=== PATIENT | male | born 1970 | race Caucasian/White ===

== ENCOUNTER 2019-05-27 18:27 | Emergency (ER) | payer OTHER ==
[2019-05-27] MEDS ORDERED: Nitroglycerin 0.4 MG Tab.SL SL PRN (18:34)
[2019-05-27] MEDS ORDERED: Aspirin 81 MG Tab.Chew PO ONE (18:34)
--- NOTE | 2019-05-28 08:49 | CR ---
DATE OF SERVICE: 05/27/19 CLINICAL DATA: chest pain AP CHEST: No priors. The heart size is normal. The lungs are clear. No pneumothorax. No pleural effusions. No evidence of acute intrathoracic disease. [id number] MTDD
--- NOTE | 2019-05-29 11:01 | ER ---
REASON FOR EMERGENCY ROOM VISIT: Chest pain. HISTORY: This 48-year-old man was up here ice fishing from [place], [place]. He comes in with pain in his left upper chest area. He gives a history of having chest pain in this area that has been fairly constant over the past 2 days. It is unrelated to any strenuous activity or trauma. He states that the area in his left upper chest wall is tender to touch and is steady in nature. It is not associated with any radiation up his neck or down his left arm. He has no associated back pain. He did not have any nausea or diaphoresis. The pain throughout the day remained steady but worsened after they were busy moving around the ice house and exerting himself. He took 3 ibuprofen tablets before coming in. He states that the pain increased with laughing and coughing and deep breathing. He is a nonsmoker with no past history of hypertension or diabetes. He may have had a borderline elevation in cholesterol. He rates his chest pain at 10/10. He appears somewhat anxious. PAST MEDICAL HISTORY: No hospitalizations. Clavicle fracture as a child. MEDICATIONS: Trazodone p.r.n. for sleep. ALLERGIES: NONE TO MEDICATIONS. REVIEW OF SYSTEMS: Pertinent positives and negatives as listed in the HPI. FAMILY HISTORY: His father and sister both have some sort of a blood disorder, but he is not certain as to the exact nature of this. He has 2 children who are alive and well. He has no other siblings other than his sister. PHYSICAL EXAMINATION: GENERAL: He appears somewhat anxious. His initial blood pressure was 144/96, pulse rate of 108, respirations 20, O2 sats 97% on room air. HEENT: Head is normocephalic. Pupils are equal, round, reactive to light. NECK: Supple. No JVD is noted. No bruits. CHEST: He has definite tenderness that is reproducible in the left upper parasternal area at approximately the level of the second or third rib. This is reproducible quite definitely, and he replicates symptoms he had when he came in. CHEST: Clear to auscultation otherwise with good air exchange bilaterally. No wheezes, rhonchi, or rales. CARDIAC: Regular rate without murmur or rub. ABDOMEN: Soft, nontender. No hepatosplenomegaly. SKIN: No rashes. FURTHER EMERGENCY ROOM COURSE: Immediately upon arrival, he was given 4 baby aspirin and 1 nitroglycerin, and subsequent to that, his pain went from a 10 down to a level of 4 fairly quickly. The following labs were obtained; CBC which was within normal limits; a CMP which was within normal limits. The troponin 1 was normal at less than 0.017. A D-dimer was obtained, and this was less than 100. A 12-lead EKG showed some sinus tachycardia but no acute changes. Chest x-ray shows no active pulmonary disease. No evidence of pneumothorax. He settled down and became much more talkative and felt much better to the point where he was almost completely pain-free apart from pain with coughing or laughing in the above described area. His blood pressure came down nicely to normotensive levels and his heart rate slowed into the 80s. IMPRESSION: Chest wall pain. No evidence for cardiac or pulmonary origin. RECOMMENDATIONS: I told him to avoid strenuous activity for the duration of his stay up here. Certainly, if he gets worsening of his pain or any shortness of breath or anything at all that is of concern, he should be seen again. He can go ahead and take ibuprofen or Tylenol as needed for pain. He understands and agrees with this plan. All questions were answered. HAWA /[id number]
== END 2019-05-27 19:25 | disposition home or self-care (01) ==
LOC: LB.ED 18:27
DX: R07.89 Other chest pain (principal)
CPT/HCPCS: 36415; 71045; 80053; 84484; 85025; 85379; 93005; 99285; A9270